=== PATIENT | female | born 1985 | race American Indian/Alaskan Native ===

== ENCOUNTER 2016-08-29 13:37 | Emergency (ER) | payer MEDICAID ==
[2016-08-29 13:38] VITALS: BMI 37.2
[2016-08-29 13:43] VITALS: BP 111/74; PULSE 82; RESP 18; TEMP 97.2; O2SAT 99
--- NOTE | 2016-08-29 14:22 | C.PDOC ---
History Of Present Illness 31 y/o female c/o flu like symptoms for one week, c/o diffuse headache, cough with yellowish-brown sputum, myalgias, occasional hot and cold feeling, sore throat, generalized weakness and right ear pain. denies any sick contacts. recent travel to [facility], returned 08/12. pt taking occasional tylenol or advil wiht mild relief. c/o pleuritic cp when coughing, no sob. pt also c/o left knee pain x 3 weeks, worse with climbing stairs. denies calf tenderness, cp and sob., has hx dvt, not on anticoagulants now. Time Seen by Provider: 08/29/16 14:03 Chief Complaint (Nursing): Flu-like Symptoms History Per: Patient, Family History/Exam Limitations: no limitations Onset/Duration Of Symptoms: Days (7) Current Symptoms Are (Timing): Worse Location Of Pain: Ear(s), Throat, Diffuse Myalgias, Headache Associated Symptoms: Sore Throat, Cough, Myalgias, Nasal Congestion, Diarrhea. denies: Neck Pain, Vomiting Past Medical History Reviewed: Historical Data, Nursing Documentation, Vital Signs Vital Signs: Last Vital Signs Temp 97.2 F L 08/29/16 13:41 Pulse 82 08/29/16 13:41 Resp 18 08/29/16 16:40 BP 111/74 08/29/16 13:41 Pulse Ox 99 08/29/16 16:30 - Medical History PMH: Deep Vein Thrombosis (LLE (Jul 2014)) Denies: Chronic Kidney Disease Surgical History: Family History: States: Unknown Family Hx - Social History Hx Tobacco Use: No Hx Alcohol Use: No Hx Substance Use: No - Immunization History Hx Tetanus Toxoid Vaccination: No Hx Influenza Vaccination: No Hx Pneumococcal Vaccination: No Review Of Systems Constitutional: Positive for: Fever, Chills ENT: Positive for: Ear Pain, Nose Congestion, Throat Pain Cardiovascular: Negative for: Chest Pain Respiratory: Positive for: Cough, Pleuritic Pain. Negative for: Shortness of Breath, Wheezing Gastrointestinal: Positive for: Diarrhea. Negative for: Nausea, Vomiting, Abdominal Pain Musculoskeletal: Positive for: Other (left knee pain) Skin: Negative for: Rash Neurological: Negative for: Weakness, Numbness Physical Exam - Physical Exam Appears: Non-toxic, No Acute Distress Skin: Normal Color, Warm, Dry Head: Atraumatic, Normacephalic Eye(s): bilateral: Normal Inspection Ear(s): Bilateral: Normal Nose: Normal Oral Mucosa: Moist Tongue: Normal Appearing Lips: Normal Appearing Throat: Normal, No Erythema, No Exudate, No Mass Neck: Normal, Normal ROM, Supple Chest: Symmetrical, No Deformity, No Tenderness Cardiovascular: Rhythm Regular, No Murmur Respiratory: Decreased Breath Sounds (in all rajput, partly poor effort, partly body habitus) Gastrointestinal/Abdominal: Soft, No Tenderness Extremity: Other (left knee mild tenderness to lateral aspect, from, no swelling , redness or warmth. no calf tenderness or swelling, no pedal edema, +2 dp pulse ) Neurological/Psych: Oriented x3, Normal Speech, Normal Cognition, Normal Motor, Normal Sensation ED Course And Treatment O2 Sat by Pulse Oximetry: 99 - Other Rad CXR X-Ray: Viewed By Me, Read By Radiologist Interpretation: HISTORY: cough yellow sputum. COMPARISON: No prior. TECHNIQUE: Chest PA and lateral. FINDINGS: LUNGS: The lungs are clear. PLEURA: No significant pleural effusion identified. No pneumothorax apparent. CARDIOVASCULAR: The cardiomediastinal silhouette is normal. OSSEOUS STRUCTURES : No significant abnormalities. VISUALIZED UPPER ABDOMEN: Normal. OTHER FINDINGS: None. IMPRESSION: No active pulmonary disease. Medical Decision Making Medical Decision Makin31 y/o female with uri/flu like symptoms. wiht neg cxr, will treat supportively Disposition Counseled Patient/Family Regarding: Diagnosis, Need For Followup, Rx Given - Disposition Referrals: [facility] [Outside] Disposition: HOME/ ROUTINE Disposition Time: 16:15 Condition: GOOD Additional Instructions: Drink a lot of fluids. Increase rest. FOllow up with your doctor or in clinic in 1-2 days. Return to ER for any worsening symptoms. Prescriptions: Loratadine [Claritin] 10 mg PO DAILY #14 tab Naproxen 500 mg PO BID #14 tab Benzonatate [Tessalon Perles] 100 mg PO TID #15 sgl Instructions: Viral Syndrome (ED) Forms: General Discharge Instructions - Clinical Impression Clinical Impression: Influenza-like illness
--- NOTE | 2016-08-29 15:27 | RAD ---
HISTORY: cough yellow sputum COMPARISON: No prior. TECHNIQUE: Chest PA and lateral FINDINGS: LUNGS: The lungs are clear. PLEURA: No significant pleural effusion identified. No pneumothorax apparent. CARDIOVASCULAR: The cardiomediastinal silhouette is normal. OSSEOUS STRUCTURES: No significant abnormalities. VISUALIZED UPPER ABDOMEN: Normal. OTHER FINDINGS: None. IMPRESSION: No active pulmonary disease.
== END 2016-08-29 16:41 | disposition home or self-care (01) ==
LOC: C.ER 13:37
DX: J11.1 Influenza due to unidentified influenza virus with other respiratory manifestations (principal)

== ENCOUNTER 2017-08-18 23:06 | Emergency (ER) | payer MEDICAID ==
[2017-08-18 23:06] VITALS: BMI 37.2
--- NOTE | 2017-08-18 23:48 | C.PDOC ---
History Of Present Illness Pt presents with left lateral thigh pain since Saturday. Denies any fever, chill , nausea, vomiting, chest, pain, shortness of breath, long trips, prolonged sitting , trauma. Speaking in complete sentences. Has hx of prior dvt, not on any anticoagulation Time Seen by Provider: 08/18/17 23:48 Chief Complaint (Nursing): Lower Extremity Problem/Injury History Per: Patient History/Exam Limitations: no limitations Onset/Duration Of Symptoms: Days Current Symptoms Are (Timing): Still Present Severity: Mild Pain Scale Rating Of: 3 Recent travel outside of the [place]: No Additional History Per: Family Past Medical History Reviewed: Historical Data, Nursing Documentation, Vital Signs Vital Signs: Last Vital Signs Temp 97.7 F 08/18/17 23:30 Pulse 75 08/18/17 23:30 Resp 20 08/18/17 23:30 BP 104/60 08/18/17 23:30 Pulse Ox 98 08/19/17 00:37 - Medical History PMH: Deep Vein Thrombosis (LLE (Jul 2014)) Denies: Chronic Kidney Disease Surgical History: Family History: States: No Known Family Hx, Unknown Family Hx - Social History Hx Tobacco Use: No Hx Alcohol Use: No Hx Substance Use: No - Immunization History Hx Tetanus Toxoid Vaccination: No Hx Influenza Vaccination: No Hx Pneumococcal Vaccination: No Review Of Systems Constitutional: Negative for: Fever, Chills ENT: Negative for: Throat Pain Cardiovascular: Negative for: Chest Pain, Palpitations, Orthopnea, Paroxysmal Noc. Dyspnea, Edema, Light Headedness Respiratory: Negative for: Shortness of Breath, SOB with Excertion Gastrointestinal: Negative for: Nausea, Vomiting, Abdominal Pain Musculoskeletal: Negative for: Back Pain Skin: Negative for: Rash Neurological: Negative for: Weakness Psych: Negative for: Anxiety Physical Exam - Physical Exam Appears: Non-toxic, No Acute Distress Skin: Warm, Dry Head: Normacephalic Oral Mucosa: Moist Neck: Supple Chest: Symmetrical Cardiovascular: Rhythm Regular Respiratory: No Decreased Breath Sounds, No Rales, No Rhonchi, No Wheezing Gastrointestinal/Abdominal: Soft, No Tenderness, Other (obese) Back: Normal Inspection Extremity: No Tenderness, No Pedal Edema, No Calf Tenderness, Capillary Refill, No Swelling, Other (left thigh terness) Extremity: Bilateral: Atraumatic, No Pedal Edema, Normal Color And Temperature, Normal ROM Pulses: Left Dorsalis Pedis: Normal, Right Dorsalis Pedis: Normal Neurological/Psych: Oriented x3, Normal Speech, Normal Cognition Gait: Steady ED Course And Treatment - Laboratory Results Result Diagrams: 08/19/17 00:13 08/19/17 00:13 ECG: Interpreted By Me, Viewed By Me ECG Rhythm: Sinus Rhythm (71), Nonspecific Changes (lvh) O2 Sat by Pulse Oximetry: 98 Pulse Ox Interpretation: Normal Disposition Counseled Patient/Family Regarding: Studies Performed, Diagnosis, Need For Followup, Rx Given - Disposition Referrals: Jeff Minaya MD [Primary Care Provider] - Disposition: HOME/ ROUTINE Disposition Time: 01:29 Condition: FAIR Additional Instructions: Please return on 08/19/17 at 7 AM for an US of the left leg to rule out a DVT. Prescriptions: traMADol [Ultram] 50 mg PO TID PRN #15 tab PRN Reason: Pain, Severe (8-10) Forms: [facility] ([place]), General Discharge Instructions - Clinical Impression Clinical Impression: Leg pain
[2017-08-19] MEDS ORDERED: Enoxaparin 120 mg Syringe SC STA (00:07)
[2017-08-19 00:16] LABS: BASO # 0.1 K/uL (0.0-0.2); EOS # 0.3 K/uL (0.0-0.7); EOS % 2.9 % (0.0-4.0); HEMOGLOBIN 11.9 g/dL (11.0-16.0); LYMPH # 4.1 K/uL (1.0-4.3); LYMPH % 39.5 % (20.0-40.0); MEAN CELL VOLUME 85.5 fL (81.0-99.0); MEAN CORPUSCULAR HEMOGLOBIN 29.1 pg (27.0-31.0); MEAN PLATELET VOLUME 6.8 fL (7.2-11.7); MONO # 0.9 K/uL (0.0-0.8); MONO % 8.7 % (0.0-10.0); NEUT % 47.9 % (50.0-75.0); RBC 4.08 Mil/uL (3.80-5.20); RED CELL DISTRIBUTION WIDTH 15.3 % (11.5-14.5); WHITE BLOOD COUNT 10.5 K/uL (4.8-10.8)
[2017-08-19 00:35] LABS: PROTHROMBIN TIME 11.3 SECONDS (9.7-12.2)
[2017-08-19 00:48] LABS: ALB/GLOB RATIO 0.9 (1.0-2.1); ALBUMIN 3.5 g/dL (3.5-5.0); ALT/SGPT 24 U/L (9-52); AST/SGOT 22 U/L (14-36); BLOOD UREA NITROGEN 12 mg/dL (7-17); GFR AFRICAN-AMERICAN > 60; GFR NON-AFRICAN AMERICAN > 60
[2017-08-19 01:40] VITALS: BP 122/83; PULSE 82; RESP 18; TEMP 98.2; O2SAT 99
--- NOTE | 2017-08-19 22:55 | CARD ---
APPROVED REPORT EKG Measurement Heart [id number] <Conclusion> Normal sinus rhythm Possible Left atrial enlargement Left ventricular hypertrophy Possible Lateral infarct, age undetermined Abnormal ECG
== END 2017-08-19 01:42 | disposition home or self-care (01) ==
LOC: SUPCPDRO 23:06 → C.ER 23:06
DX: M79.652 Pain in left thigh (principal)
CPT/HCPCS: 80053; 85025; 85378; 85610; 85730; 93005; 96372; 96374; 96375; 99284; J1650; J1885; J2270

== ENCOUNTER 2018-04-23 17:30 | Emergency (ER) | payer MEDICAID ==
[2018-04-23 17:55] VITALS: BMI 34.9
[2018-04-23 17:58] VITALS: RESP 18
[2018-04-23] MEDS ORDERED: Sodium Chloride 0.9% 1,000 ML IV ONE (19:42)
[2018-04-23 20:00] LABS: BASO # 0.1 K/uL (0.0-0.2); BASO % 0.8 % (0.0-2.0); EOS # 0.3 K/uL (0.0-0.7); EOS % 3.1 % (0.0-4.0); HEMOGLOBIN 13.4 g/dL (11.0-16.0); LYMPH # 3.4 K/uL (1.0-4.3); LYMPH % 31.4 % (20.0-40.0); MEAN CELL VOLUME 85.7 fL (81.0-99.0); MEAN CORPUSCULAR HEMOGLOBIN 28.1 pg (27.0-31.0); MEAN CORPUSCULAR HGB CONC 32.8 g/dL (33.0-37.0); MONO # 0.6 K/uL (0.0-0.8); MONO % 5.5 % (0.0-10.0); NEUT # 6.4 K/uL (1.8-7.0); NEUT % 59.2 % (50.0-75.0); NRBC % 0.1 % (0.0-2.0); RBC 4.77 Mil/uL (3.80-5.20); RED CELL DISTRIBUTION WIDTH 15.3 % (11.5-14.5); WHITE BLOOD COUNT 10.9 K/uL (4.8-10.8)
[2018-04-23 20:03] LABS: HCG,QUALITATIVE URINE NEGATIVE (NEGATIVE)
[2018-04-23 20:06] LABS: SQUAMOUS EPITHIAL 4 /hpf (0-5); URINE BACTERIA OCC (<OCC); URINE BILIRUBIN NEGATIVE (NEGATIVE); URINE BLOOD NEGATIVE (NEGATIVE); URINE CLARITY Hazy (Clear); URINE COLOR Straw (YELLOW); URINE GLUCOSE (UA) NORMAL (Normal); URINE LEUKOCYTE ESTERASE 3+ Leu/uL (Negative); URINE PROTEIN NEGATIVE (NEGATIVE); URINE UROBILINOGEN NORMAL mg/dL (0.2-1.0)
[2018-04-23 20:10] LABS: ALBUMIN 4.1 g/dL (3.5-5.0); ALT/SGPT 18 U/L (9-52); AST/SGOT 29 U/L (14-36); BLOOD UREA NITROGEN 13 mg/dL (7-17); CALCIUM 8.5 mg/dl (8.6-10.4); GFR NON-AFRICAN AMERICAN > 60
[2018-04-23 20:47] VITALS: BP 126/82; PULSE 82; TEMP 98.3
--- NOTE | 2018-04-23 20:56 | C.PDOC ---
History Of Present Illness 33 year old female presents to the ED for evaluation of generalized malaise, generalized body aches, back pain and decreased appetite which began 3 days ago. Patient states she returned from [facility] over two weeks ago, and was asymptomatic until three days ago. Patient denies fever, chills, chest pain, shortness of breath, headache, dizziness, vomiting, diarrhea, hematuria, dysuria, or sick contacts. Time Seen by Provider: 04/23/18 19:23 Chief Complaint (Nursing): Medical Clearance History Per: Patient History/Exam Limitations: no limitations Onset/Duration Of Symptoms: Days (3) Current Symptoms Are (Timing): Still Present Additional History Per: Patient Past Medical History Reviewed: Historical Data, Nursing Documentation, Vital Signs Vital Signs: Last Vital Signs Temp 98.3 F 04/23/18 20:47 Pulse 82 04/23/18 20:47 Resp 18 04/23/18 20:47 BP 126/82 04/23/18 20:47 Pulse Ox 99 04/23/18 20:47 - Medical History PMH: Deep Vein Thrombosis (LLE (Jul 2014)) Denies: Chronic Kidney Disease Surgical History: Family History: States: Unknown Family Hx - Social History Hx Tobacco Use: No Hx Alcohol Use: No Hx Substance Use: No - Immunization History Hx Tetanus Toxoid Vaccination: No Hx Influenza Vaccination: No Hx Pneumococcal Vaccination: No Review Of Systems Constitutional: Positive for: Malaise, Other (decreased appetite ). Negative for: Fever, Chills Respiratory: Negative for: Shortness of Breath Gastrointestinal: Negative for: Vomiting, Diarrhea Genitourinary: Negative for: Dysuria, Hematuria Musculoskeletal: Positive for: Other (generalized body aches ) Physical Exam - Physical Exam Appears: Well, Non-toxic, No Acute Distress Skin: Normal Color, Warm, Dry Head: Atraumatic, Normacephalic Eye(s): bilateral: Normal Inspection Ear(s): Bilateral: Normal Nose: Normal, No Discharge Oral Mucosa: Moist Throat: Normal, No Erythema, No Exudate Neck: Supple Chest: Symmetrical, No Deformity, No Tenderness Cardiovascular: Rhythm Regular, No Murmur Respiratory: Normal Breath Sounds, No Rales, No Rhonchi, No Wheezing Gastrointestinal/Abdominal: Soft, No Tenderness, No Guarding, No Rebound Extremity: Normal ROM, Capillary Refill Neurological/Psych: Oriented x3, Normal Speech, Normal Cognition ED Course And Treatment - Laboratory Results Result Diagrams: 04/23/18 19:48 04/23/18 19:48 O2 Sat by Pulse Oximetry: 99 (on RA) Pulse Ox Interpretation: Normal Progress Note: Bloodwork and urinalysis ordered and reviewed. Urinalysis resul ts show patient is positive for a urinary tract infection. Macrobid PO and IV fluids given. After thorough screening, based on patients history, physical exam and lab findings, her symptoms are less likely associated with parasitic infections (such as malaria). Patient was found to have a UTI. Will treat accordingly. Patient is advised to follow up with her PMD within 1-2 days for further evaluation and/or return to the ED if symptoms persist or worsen. Disposition - Disposition Referrals: Steve Nuñez MD [Staff Provider] - Disposition: HOME/ ROUTINE Disposition Time: 20:47 Condition: STABLE Additional Instructions: Please follow up with PMD Take meds as directed Increase fluids Return to ER if fever, abdominal or back pain, vomiting or worse Prescriptions: Nitrofurantoin Macrocrystals [Macrobid] 1 cap PO BID #14 cap Instructions: Urinary Tract Infection, Adult (DC) Forms: [employer] (Lebanese) - Clinical Impression Clinical Impression: Urinary tract infection - PA / TOOL SHARPENER / Resident Statement MD/DO has reviewed & agrees with the documentation as recorded. - Scribe Statement The provider has reviewed the documentation as recorded by the Scribe (Cortney Forrester) All medical record entries made by the Scribe were at my direction and personally dictated by me. I have reviewed the chart and agree that the record accurately reflects my personal performance of the history, physical exam, medical decision making, and the department course for this patient. I have also personally directed, reviewed, and agree with the discharge instructions and disposition.
--- NOTE | 2018-04-23 20:57 | C.PDOC ---
Time Seen by Provider: 04/23/18 19:23 Chief Complaint (Nursing): Medical Clearance Past Medical History Vital Signs: Last Vital Signs Temp 98 F 04/23/18 17:54 Pulse 88 04/23/18 17:54 Resp 18 04/23/18 17:54 BP 114/79 04/23/18 17:54 Pulse Ox 100 04/23/18 17:54 - Medical History PMH: Deep Vein Thrombosis (LLE (Jul 2014)) Denies: Chronic Kidney Disease Surgical History: Family History: States: Unknown Family Hx - Social History Hx Tobacco Use: No Hx Alcohol Use: No Hx Substance Use: No - Immunization History Hx Tetanus Toxoid Vaccination: No Hx Influenza Vaccination: No Hx Pneumococcal Vaccination: No ED Course And Treatment - Laboratory Results Result Diagrams: 04/23/18 19:48 04/23/18 19:48 O2 Sat by Pulse Oximetry: 100 Disposition Counseled Patient/Family Regarding: Diagnosis, Need For Followup, Rx Given - Disposition Referrals: Steve Nuñez MD [Staff Provider] - Disposition: HOME/ ROUTINE Disposition Time: 20:47 Condition: STABLE Additional Instructions: Please follow up with PMD Take meds as directed Increase fluids Return to ER if fever, abdominal or back pain, vomiting or worse Prescriptions: Nitrofurantoin Macrocrystals [Macrobid] 1 cap PO BID #14 cap Instructions: Urinary Tract Infection, Adult (DC) Forms: [email or web address] ([place]ive[place]) - Clinical Impression Clinical Impression: Urinary tract infection
[2018-04-23 20:59] VITALS: O2SAT 99
== END 2018-04-23 21:06 | disposition home or self-care (01) ==
LOC: C.ER 17:30
DX: N39.0 Urinary tract infection, site not specified (principal)
CPT/HCPCS: 80053; 81001; 84703; 85025; 85378; 87086; 96360; 99285; J7030